=== PATIENT | male | born 1985 | race American Indian/Alaskan Native ===

== ENCOUNTER 2017-04-18 16:23 | Emergency (ER) | payer SELFPAY ==
[2017-04-18 16:29] VITALS: BP 124/78
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
== END 2017-04-19 06:40 | disposition left against medical advice (07) ==
LOC: ED 16:23
DX: S69.91XA Unspecified injury of right wrist, hand and finger(s), initial encounter (principal); Z53.21 Procedure and treatment not carried out due to patient leaving prior to being seen by health care provider; X58.XXXA Exposure to other specified factors, initial encounter; Y93.89 Activity, other specified; Y99.8 Other external cause status; Y92.89 Other specified places as the place of occurrence of the external cause

== ENCOUNTER 2017-04-19 08:28 | Emergency (ER) | payer SELFPAY | END 2017-04-19 09:35 | disposition left against medical advice (07) | LOC: ED 08:28 | DX: S62.90XA Unspecified fracture of unspecified hand, initial encounter for closed fracture (principal); Z53.21 Procedure and treatment not carried out due to patient leaving prior to being seen by health care provider; X58.XXXA Exposure to other specified factors, initial encounter; Y93.89 Activity, other specified; Y99.8 Other external cause status; Y92.89 Other specified places as the place of occurrence of the external cause ==